=== PATIENT | male | born 1955 | race Caucasian/White ===

== ENCOUNTER 2017-07-25 06:18 | Inpatient (IN) ==
[2017-07-25] MEDS ORDERED: CeFAZolin Syr 3,000MG/30 ML 3,000 MG/30 ML SYRINGE IVPB ONE (06:37)
[2017-07-25] MEDS ORDERED: Albuterol 2.5 MG/3 ML NEBULIZER IH ONE (06:37)
[2017-07-25] MEDS ORDERED: Famotidine 20 MG/2 ML VIAL IVP ONE (07:16)
[2017-07-25] MEDS ORDERED: Acetaminophen IV 1,000 MG/100 ML INFUS..BTL IVPB ONE (07:17)
[2017-07-25] MEDS ORDERED: Pregabalin 75 MG CAPSULE PO ONE (07:17)
[2017-07-25] MEDS ORDERED: *HR* Rocuronium Bromide 50 MG/5 ML VIAL ONE (07:35)
[2017-07-25] MEDS ORDERED: Ondansetron 4 MG/2 ML VIAL ONE (07:35)
[2017-07-25] MEDS ORDERED: Lidocaine -MPF 2% 2 ML VIAL ONE (07:35)
[2017-07-25] MEDS ORDERED: Dexamethasone 4 MG/ML VIAL ONE (07:35)
--- NOTE | 2017-07-25 07:35 | Anesthesia Evaluation PreOp ---
Date of Encounter: 07/25/17 Time of Encounter: 07:30 - Past History Planned Operation: Posterior Lumbar Interbody Fusion L5-S1 Cardiac History: HTN, Hyperlipidemia, Other (AAA Repair) Pulmonary History: Smoker, COPD BEHAVIORAL SCIENCES DEPARTMENT CHAIR History: Denies Any Significant HX Other Medical History: Other (Obesity) Anesthesia History: No Prior Anesthetic Complications Alcohol Use: none Drug use: none Medications and Allergies Etodolac [Etodolac] 400 mg PO BID 07/25/17 [History] Fenofibrate Nanocrystallized [Triglide] 160 mg PO DAILY 07/25/17 [History] Gabapentin [Neurontin] 400 mg PO TID 07/25/17 [History] Metoprolol [Lopressor] 25 mg PO BID 07/25/17 [History] cloNIDine HCl [CloNIDine HCl] 0.1 mg PO DAILY PRN 07/25/17 [History] 3 Allergy/AdvReac Type Severity Reaction Status Date / Time No Known Allergies Allergy Verified 07/25/17 07:30 - Meds/Allergy Pre-op Review Medications Reviewed: Yes Allergies Reviewed: Yes Beta Blockers on Current Med List: Yes (Took Today 444) Anesthesia Results - Labs Laboratory Tests 07/19/17 07/19/17 07/19/17 12:03 12:03 12:03 Hgb 15.3 Hct 47.4 Plt Count 166 PT 11.4 INR 1.1 APTT 28.6 Sodium 139 Potassium 4.0 BUN 16 Creatinine 0.88 - Imaging EKG: report reviewed (SR occ PVC) Anesthesia Exam O2 Sat Height 1.8 m Height 1.8 m Height 1.8 m Weight 124.284 kg Weight 124.284 kg Weight 124.284 kg O2 Sat by Pulse Oximetry 94 O2 Sat by Pulse Oximetry 94 Vital Signs Temp Pulse Resp BP Pulse Ox 98.2 F 61 18 125/87 94 07/25/17 06:42 07/25/17 06:42 07/25/17 06:42 07/25/17 06:42 07/25/17 06:42 Height: 5'11 Weight: 274 lbs NPO (# of Hours): MN Pain Scale: 0 - HEENT Pupil (Motor): Pupils equal, EOMI Mallampati: II Teeth: Normal Oral Opening: Greater than 3 - BEHAVIORAL SCIENCES DEPARTMENT CHAIR LOC: Oriented BEHAVIORAL SCIENCES DEPARTMENT CHAIR Motor: Normal RUE, Normal LUE, Normal RLE, Normal Face, Deficit LLE ( weakness) BEHAVIORAL SCIENCES DEPARTMENT CHAIR Sensory: Normal: RUE, LUE, RLE, Face, Deficit: LLE (paresthesia) - Cardiac Rhythm: Regular Murmur: None JVD: No Carotid Bruit: No - Pulmonary Breath Sounds: bilateral Clear Respiratory Effort: Symmetrical Anesthesia Assess/Plan ASA Score: 3 (HTN COPD Obese Tobacco) Modified [place] Scale for Level of Consciousness: Cooperative, oriented, and tranquil Anesthetic Plan: General Monitoring Plan: Standard Monitors Recovery Plan: PACU (Discussed GA, agrees to proceed)
[2017-07-25] MEDS ORDERED: *HR* Propofol 200 MG/20 ML VIAL IVP ONE (07:36)
[2017-07-25] MEDS ORDERED: *HR* FentaNYL (PF) 100 MCG/2 ML VIAL ONE (07:36)
[2017-07-25] MEDS ORDERED: *HR* Midazolam HCl 2 MG/2 ML VIAL ONE (07:36)
[2017-07-25] MEDS ORDERED: Lidocaine -MPF 1% 2 ML VIAL ONE (07:40)
[2017-07-25] MEDS: Ringers Solution, Lactated 1,000 ML IVC SCH ×3 (07:44→12:02)
--- NOTE | 2017-07-25 08:10 | History & Physical Report ---
Date of Encounter: 07/25/17 Time of Encounter: 08:10 24 Hour HP Update - Instructions Instructions: If the History and Physical is less than 30 days old and was completed prior to A.M. admission and or procedure and has NOT been updated on calendar day of procedure please complete this update prior to performing procedure. - Update Patient reports changes in Medical Condition: No Changes in examination, assessment, or condition: No Changes in Medication: No Preop tests/diagnostics Reviewed: Yes Pre-Op MRSA Screen: Negative Surgery Remains Indicated: Yes Consent for Planned Operative Procedure(s) Verified: Yes - Pre-Operative Checklist Preoperative Checklist Indicated: No Prophylactic Antibiotic Ordered: Yes Home Medications Include Beta Eliane: Yes Beta Eliane Taken Today (Day of Surgery): No Beta Eliane Taken Yesterday (Day Prior to Surgery): Yes Is VTE Prophylaxis Indicated?: Yes
[2017-07-25] MEDS ORDERED: Bacitracin 50,000 UNIT, Polymyxin B Sulfate 500,000 UNIT, Sodium Chloride IRRigation 1,... IR ONE (08:15)
[2017-07-25] MEDS ORDERED: EPHEDrine 50 MG/ML VIAL ONE (08:59)
[2017-07-25] MEDS ORDERED: *HR* PHENYLEPHRINE 1,000 MCG/10 ML SYRINGE IVP ONE (09:57)
[2017-07-25] MEDS ORDERED: *HR* Promethazine 25 MG/ML VIAL IVP PRN (10:00)
[2017-07-25] MEDS ORDERED: Albuterol 2.5 MG/3 ML NEBULIZER IH PRN (10:00)
[2017-07-25] MEDS ORDERED: *HR* Morphine 10 MG/ML VIAL ONE (10:03)
[2017-07-25] MEDS ORDERED: Neostigmine Methylsulfate 3 MG/3 ML SYRINGE ONE (10:56)
--- NOTE | 2017-07-25 11:18 | Orthopedic Operative Note ---
Date of procedure: 07/25/17 Pre-op diagnosis: Spondylolisthesis, lumbar stenosis, lumbar radiculopathy Post-op diagnosis: same Operation/Findings: Posterior lumbar interbody fusion L5-S1: The patient successfully underwent general endotracheal anesthesia. The patient was given antibiotics prior to the start of the procedure. Compression boots and stockings were used for deep vein thrombosis prophylaxis. A Castaneda catheter was placed. Leads for neuro monitoring were placed on the upper and lower extremities. This included the cranium. The neuro monitoring personnel confirmed there were satisfactory readings prior to the start of the procedure. The patient was turned prone on the Henrique table. The back was prepped and draped in the usual sterile fashion. An incision was was marked and centered over the involved L5-S1 levels in the mid line. The incision was deepened through the lumbar fascia. Bovie cautery and Bill elevators were used to reflect the paraspinal musculature at the lateral extent of the transverse processes of the involved L5 and S1 levels. Shea clamps were placed over the L5 spinous process. An intraoperative lateral fluororaph was obtained. A conversation was held between the surgeon and radiologist and both confirmed we had the correct operative levels. We then placed pedicle screws in standard fashion with the aid of fluoroscopy and anatomic landmarks. Briefly a starter awl was used. A gearshift was subsequently used to enter the army helicopter pilot hole via a transpedicular route into the vertebral body. The army helicopter pilot hole was tapped with an undersized instrument, and subsequentlyfour 6.5 x 45 mm pedicle screws were placed bilaterally at the indicated levels. The screws were tested with the aid of the neurologic monitoring staff via pedicle screw stimulation. All reading suggested there was no significant cortical wall breech. The screws were also evaluated fluoro- graphically and appeared to be in satisfactory position. We then turned our attention to the decompression portion of the procedure. We removed the supraspinous and interspinous ligaments and subsequently the insertion of the ligamentum flavum on the undersurface of the proximal L5 lamina was dislodged with a curette. We then removed the ligamentum flavum as well as undercut the L5-S1 facets at this level to decompress the lateral recesses. We also performed a L5 laminectomy. After the decompression, which was over and above that which was required to place the interbody graft, the foramen and traversing roots at this level were found to be free and patent. We also took part of the medial facet in order to aid in the decompression. We then protected the neural elements including the thecal sac and traversing nerve root on the right with a dural retractor. We made an annulotomy into the L5-S1 disc space and then removed entire disc material using Pituitary instruments. We trialed various size grafts after the endplates were prepared for graft insertion. A 10 x 26 enter body graft fit well within the L5-S1 disc space. We obtained some bone from the right posterior superior iliac spine through us a separate incision and combined with this with the bone which we had saved from the laminectomy portion of the procedure. This autograft bone was first placed in the anterior portion of the L5-S1 disc space and additional bone was placed within the interbody graft spacer. We then placed the interbody graft spacer obliquely across the disc space towards the midline while protecting the neural elements with a root retractor. When the graft was found to be in satisfactory position the geophysical computer was removed. We then copiously irrigated the wound. We then decorticated the L5 transverse processes and proximal portion of the sacrum as well as the L5-S1 facet joints of the involved levels to aid in the posterolateral fusion. We placed autograft bone in the lateral gutters over these regions. We then placed rods within the screw heads of the involved L5 and S1 levels and first locked the distal screws and then subsequently locked the proximal screws so as to improve and reduce the spondylolisthesis previously seen. We then closed the wound in layers with 1 Vicryl for the fascia, 2-0 Vicryl. Subcutaneous tissue, and Dermabond was used for skin closure. Sterile dressings were placed over the wound. The patient was turned supine on a hospital bed and extubated. All sponge instruments and needle counts were correct at the end of the procedure. The patient tolerated the procedure well without complications. Anesthesia: GETA Surgeon: Dick Blood Jr Was there an physician assistant primary care present: No Estimated blood loss (cc): 150 Specimen: None Condition: stable Disposition: PACU
[2017-07-25] MEDS: *HR* Morphine 2 MG/ML SYRINGE IVP PRN ×2 (12:00→12:21)
[2017-07-25] MEDS ORDERED: Ringers Solution, Lactated 1,000 ML IVC SCH (13:13)
[2017-07-25] MEDS ORDERED: Ondansetron 4 MG/2 ML VIAL IVP PRN (13:13)
[2017-07-25] MEDS ORDERED: cloNIDine HCl 0.1 MG TABLET PO PRN (13:13)
[2017-07-25] MEDS ORDERED: Naloxone 0.4 MG/ML INJ IVP PRN (13:13)
[2017-07-25] MEDS ORDERED: *HR* OxyCODONE Immed Rel 5 MG TABLET PO SCH (13:13)
[2017-07-25] MEDS ORDERED: Acetaminophen 325 MG TABLET PO PRN (13:13)
--- NOTE | 2017-07-25 13:31 | Anesthesia Evaluation Post Op ---
Date of Encounter: 07/25/17 Time of Encounter: 13:00 - Vital Signs Vital Signs: Vital Signs/O2 Sat/Glucose, Most Current Temp Pulse Resp BP Pulse Ox 07/25/17 12:52 98.6 F 102 18 126/83 94 07/25/17 12:35 98.9 F 102 22 118/85 92 07/25/17 12:25 98.7 F 100 20 117/87 92 07/25/17 12:15 107 18 133/88 93 07/25/17 12:05 98 20 139/92 95 07/25/17 11:55 97.4 F L 100 20 137/86 95 07/25/17 11:45 100 18 155/83 94 07/25/17 11:35 100 20 148/87 96 07/25/17 11:25 98.9 F 100 16 147/88 94 - Lungs Lungs: Clear Ascult./Percussion - Airway Airway: Non-obstructed - Cardiovascular Regular Rate - Mental Status Mental Status: Alert & Oriented, Answers Appropriately - Pain Pain Scale: 1 - Nausea Vomiting Nausea Vomiting: Not Present - Hydration Hydration: Ice chips - Discharge PostOp Status: Transfer Patient to floor
[2017-07-25] MEDS: CeFAZolin Premix DUPLEX 2,000 MG/50 ML BAG IVPB SCH ×2 (15:51→23:21)
[2017-07-25] MEDS: *HR* OxyCODONE Immed Rel 5 MG TABLET PO PRN ×2 (19:15→23:21)
[2017-07-26] MEDS: *HR* OxyCODONE Immed Rel 5 MG TABLET PO PRN ×3 (04:50→16:59)
[2017-07-26 05:36] LABS: Basophils % 0.1 %; Eosinophils % 0.1 %; Hematocrit 40.2 % (37.5-50.1); Immature Granulocytes % 0.3 % (0-4); Lymphocytes # 1.7 K/mcL (0.6-4.6); Lymphocytes % 12.5 %; Mean Corpuscular HGB Conc 33.1 g/dL (31.6-35.5); Mean Corpuscular Hemoglobin 28.8 pg (28.0-33.3); Mean Platelet Volume 10.2 fL (9.4-12.4); Monocytes # 1.4 K/mcL (0.0-1.3); Monocytes % 10.4 %; Neutrophils # 10.5 K/mcL (1.6-8.9); Platelet Count 197 K/mcL (140-400); Red Blood Count 4.62 M/mcL (4.19-5.50); Red Cell Distribution Width 15.1 % (11.5-14.5); Segmented Neutrophils % 76.6 %
[2017-07-26 05:40] LABS: Hemoglobin 13.3 g/dL (12.9-16.9)
[2017-07-26 06:02] LABS: BUN/Creatinine Ratio 18 (6-26); Blood Urea Nitrogen 12 mg/dL (8-23); Calcium 9.1 mg/dL (8.6-10.3); Carbon Dioxide 25 mEq/L (23-29); Chloride 106 mEq/L (98-107); Glucose 125 mg/dL (70-105); Osmolality,Calculated 283 (280-300); Potassium 3.9 mEq/L (3.5-5.1); Sodium 136 mEq/L (136-145); eGFR For African Americans > 60 (> 60); eGFR For Non-African Americans > 60 (> 60)
[2017-07-26] MEDS: Fenofibrate 54 MG TABLET PO SCH (09:35)
[2017-07-26] MEDS: Albuterol 2.5 MG/3 ML NEBULIZER IH SCH ×4 (11:12→20:05)
--- NOTE | 2017-07-26 12:28 | Spine Progress Note ---
Date of Encounter: 07/26/17 Time of Encounter: 12:26 Subjective Principal diagnosis: Spondylolisthesis, lumbar stenosis Interval history: The patient is without complaints. Afebrile vital signs are stable. Incision is clean dry and intact. Neurovascularly intact with regard to bilateral lower extremities. Fires all upper and lower extremity motor groups. Assessment : stable. Plan mobilize ,continue analgesics, discharge planning. Objective Vital signs: Vital Signs Temp Pulse Resp BP Pulse Ox 07/26/17 11:38 97.8 F 99 20 145/95 91 07/26/17 07:51 98.2 F 82 16 151/84 90 07/26/17 04:23 98.0 F 83 16 127/82 91 07/25/17 23:32 98.0 F 89 18 135/86 91 07/25/17 20:39 98.0 F 77 18 112/72 92 07/25/17 15:57 98 F 105 16 133/68 91 07/25/17 14:45 98.1 F 101 16 118/76 92 07/25/17 14:19 98 F 104 16 120/79 92 07/25/17 13:20 98.4 F 103 16 128/88 91 07/25/17 12:52 98.6 F 102 18 126/83 94 07/25/17 12:35 98.9 F 102 22 118/85 92 Intake and Output 07/25/17 07/26/17 07/26/17 23:59 07:59 15:59 Intake Total 350 / 350 300 / 300 Output Total 2490 / 2490 1050 / 1050 Balance -2140 / -2140 -750 / -750 Intake: IV Fluids 50 / 50 Ancef Premix DUPLEX 2,000 mg In 50 / 50 50 ml @ 100 mls/hr IVPB Q8HR [facility] Rx#:[id number] Oral 300 / 300 300 / 300 Output: Catheter 2490 / 2490 1050 / 1050 Urethral (Castaneda) 1840 / 1840 - Labs CBC & BMP: 07/26/17 05:28 07/26/17 05:28 Labs: Abnormal lab results WBC 13.7 K/mcL (4.3-11.1) H D 07/26/17 05:28 RDW 15.1 % (11.5-14.5) H 07/26/17 05:28 Neutrophils # 10.5 K/mcL (1.6-8.9) H 07/26/17 05:28 Monocytes # 1.4 K/mcL (0.0-1.3) H 07/26/17 05:28 Creatinine 0.66 mg/dL (0.70-1.30) L 07/26/17 05:28 Glucose 125 mg/dL (70-105) H 07/26/17 05:28 Consult Discharge Plan - Plan Referrals: Krista Marsh, MICROELECTRONICS ENGINEER [Primary Care Provider] -
[2017-07-26] MEDS: *HR* HYDROcodone/Acet 5/325 mg TABLET PO PRN (13:23)
[2017-07-27] MEDS: Albuterol 2.5 MG/3 ML NEBULIZER IH SCH ×7 (00:07→23:16)
[2017-07-27] MEDS: *HR* OxyCODONE Immed Rel 5 MG TABLET PO PRN ×3 (03:11→14:10)
[2017-07-27] MEDS: Fenofibrate 54 MG TABLET PO SCH (09:29)
[2017-07-27] MEDS ORDERED: Ipratropium/Albuterol Neb 3 ML IH ONE (10:39)
--- NOTE | 2017-07-27 13:32 | Spine Progress Note ---
Date of Encounter: 07/27/17 Time of Encounter: 13:31 Subjective Principal diagnosis: Spondylolisthesis, lumbar stenosis Interval history: The patient is without complaints. Afebrile vital signs are stable. Incision is clean dry and intact. Neurovascularly intact with regard to bilateral lower extremities. Fires all upper and lower extremity motor groups. Assessment : stable. Plan mobilize ,continue analgesics, discharge planning. Objective Vital signs: Vital Signs Temp Pulse Resp BP Pulse Ox 07/27/17 11:27 20 88 07/27/17 11:02 98.5 F 91 16 137/72 93 07/27/17 08:03 18 86 07/27/17 07:58 98.4 F 87 16 150/96 93 07/27/17 00:16 97.7 F 80 17 127/80 99 07/27/17 00:09 18 90 07/26/17 20:06 18 92 07/26/17 20:00 97.9 F 87 17 132/81 99 07/26/17 16:53 18 90 07/26/17 16:25 99.1 F 96 18 137/76 85 Intake and Output 07/26/17 07/27/17 07/27/17 23:59 07:59 15:59 Intake Total 150 / 150 Output Total 850 / 850 700 / 700 500 / 500 Balance -700 / -700 -700 / -700 -500 / -500 Intake: Oral 150 / 150 Output: Urine 850 / 850 700 / 700 500 / 500 - Labs CBC & BMP: 07/26/17 05:28 07/26/17 05:28 Labs: Abnormal lab results WBC 13.7 K/mcL (4.3-11.1) H D 07/26/17 05:28 RDW 15.1 % (11.5-14.5) H 07/26/17 05:28 Neutrophils # 10.5 K/mcL (1.6-8.9) H 07/26/17 05:28 Monocytes # 1.4 K/mcL (0.0-1.3) H 07/26/17 05:28 Creatinine 0.66 mg/dL (0.70-1.30) L 07/26/17 05:28 Glucose 125 mg/dL (70-105) H 07/26/17 05:28 Consult Discharge Plan - Plan Referrals: Jimena Coyle, PAC [Physician Retail Asset Protection Specialist] - 08/08/17 2:00 pm Dick Blood Jr, MD [Partnered Physician] - 10/26/17 11:30 am Krista Marsh CNP [Primary Care Provider] -
[2017-07-27 18:26] LABS: ABG Base Excess 1 mEq/L (-2 to 3); ABG HCO3 24 mEq/L (21-27); ABG Oxygen Saturation 88 % (95-98); ABG PCO2 35 mmHg (35-45); ABG PH 7.44 pH Units (7.32-7.45); ABG PO2 53 mmHg (85-104); ABG TCO2 25 mEq/L (20-26)
[2017-07-28] MEDS: *HR* OxyCODONE Immed Rel 5 MG TABLET PO PRN ×3 (00:06→18:33)
[2017-07-28] MEDS: Albuterol 2.5 MG/3 ML NEBULIZER IH SCH ×6 (03:33→23:40)
[2017-07-28] MEDS: Fenofibrate 54 MG TABLET PO SCH (07:52)
[2017-07-28] MEDS: *HR* HYDROcodone/Acet 5/325 mg TABLET PO PRN (10:23)
--- NOTE | 2017-07-28 16:02 | Spine Progress Note ---
Date of Encounter: 07/28/17 Time of Encounter: 16:01 Subjective Principal diagnosis: Spondylolisthesis, lumbar stenosis Interval history: The patient is without complaints. Afebrile vital signs are stable. Incision is clean dry and intact. Has some ecchymosis in the right flank. Neurovascularly intact with regard to bilateral lower extremities. Fires all upper and lower extremity motor groups. Assessment :stable. Plan mobilize , continue analgesics, discharge planning. Have asked the patient to be compliant with incentive spirometry. Has known COPD. Objective Vital signs: Vital Signs Temp Pulse Resp BP Pulse Ox 07/28/17 12:23 98.8 F 79 16 110/72 90 07/28/17 11:53 16 90 07/28/17 09:14 90 07/28/17 08:13 17 92 07/28/17 07:32 98.5 F 85 17 121/77 92 07/28/17 03:45 98.1 F 88 16 146/79 90 07/28/17 03:33 22 93 07/27/17 23:40 98.2 F 94 18 176/85 90 07/27/17 23:16 22 92 07/27/17 19:43 24 92 07/27/17 19:07 99.2 F 98 18 154/98 92 07/27/17 16:42 98.4 F 79 18 144/79 93 07/27/17 16:10 18 137/72 88 - Labs CBC & BMP: 07/26/17 05:28 07/26/17 05:28 Labs: Abnormal lab results WBC 13.7 K/mcL (4.3-11.1) H D 07/26/17 05:28 RDW 15.1 % (11.5-14.5) H 07/26/17 05:28 Neutrophils # 10.5 K/mcL (1.6-8.9) H 07/26/17 05:28 Monocytes # 1.4 K/mcL (0.0-1.3) H 07/26/17 05:28 ABG pO2 53 mmHg (85-104) L 07/27/17 18:17 ABG O2 Saturation 88 % (95-98) L 07/27/17 18:17 Creatinine 0.66 mg/dL (0.70-1.30) L 07/26/17 05:28 Glucose 125 mg/dL (70-105) H 07/26/17 05:28 Consult Discharge Plan - Plan Referrals: Jimena Coyle, TRAVIS [Physician Coupling Machine Operator] - 08/08/17 2:00 pm Dick Blood Jr, MD [Partnered Physician] - 10/26/17 11:30 am Krista Marsh CNP [Primary Care Provider] -
--- NOTE | 2017-07-28 16:04 | Discharge Summary ---
Date of Encounter: 07/28/17 Time of Encounter: 16:02 - Discharge Diagnosis (1) Spondylolisthesis Priority: Primary Status: Chronic Qualifiers: Spinal region: lumbar Qualified Code(s): M43.16 - Spondylolisthesis, lumbar region (2) Lumbar stenosis without neurogenic claudication Priority: Secondary Status: Chronic - Discharge Medications Prescriptions: OxyCODONE Immed Rel [Roxicodone 5 MG] 5 mg PO Q4HR PRN 5 Days #30 tablet PRN Reason: Breakthrough Pain Home Medications: Etodolac 400 mg PO BID 07/25/17 [History] Fenofibrate Nanocrystallized [Triglide] 160 mg PO DAILY 07/25/17 [History] Gabapentin [Neurontin] 400 mg PO TID 07/25/17 [History] Metoprolol [Lopressor] 25 mg PO BID 07/25/17 [History] cloNIDine HCl [CloNIDine HCl] 0.1 mg PO DAILY PRN 07/25/17 [History] OxyCODONE Immed Rel [Roxicodone 5 MG] 5 mg PO Q4HR PRN 5 Days #30 tablet [Rx] Allergies/Adverse Reactions: 3 Allergy/AdvReac Type Severity Reaction Status Date / Time No Known Allergies Allergy Verified 07/25/17 07:30 Labs on day of discharge: Labs from last 24 hours 07/27/17 18:17 Sample Site R Radial ABG pH 7.44 ABG pCO2 35 ABG pO2 53 L ABG HCO3 24 ABG Total CO2 25 ABG O2 Saturation 88 L ABG Base Excess 1 Ernie Test Positive O2 Delivery Device Cannula Inspired O2 28.0 - Impressions ITS Impressions Lumbar Spine X-Ray 07/25/17 00:00 IMPRESSION: Status post fusion at L5-S1 for spondylolisthesis which appears to be for the most part reduced. No obvious new or unexpected finding. D/ / 07/25/2017 11:42:20 Rachelle Mai MD / Mariely Harvey Interpreting Provider: Rachelle Mai MD Chest X-Ray 07/27/17 10:13 IMPRESSION: Mild patchy left lung base opacities which may represent atelectasis versus possible pneumonia. D/ 07/27/2017 16:29:09 Odilon Black MD / aleida Interpreting Provider: Odilon Black MD Date of admission: 07/25/17 12:43 Primary care physician: Krista Marsh, Consults: 07/25/17 13:13 Consult to Occupational Therapy [CONS] Routine Comment: Evaluate, develop and implement POC Reason for Consult: Postoperative rehabilitation Consult to Physical Therapy [CONS] Routine Comment: Evaluate, develop and implement POC Reason for Consult: Postoperative rehabilitation Consult to Rewriter [CONS] Routine Reason for SW Consult: Postoperative rehabilitation Consult to Spine Navigator [CONS] [CONS] Routine - Patient Status Disposition: Home Health Service Condition: Good Functional capacity at discharge: independent ambulation Overall status at discharge: patient is progressing back to baseline - Discharge Instructions Follow Up With: Jimena Coyle PAC [Physician Embedded Engineer] - 08/08/17 2:00 pm Dick Blood Jr, MD [Partnered Physician] - 10/26/17 11:30 am Krista Marsh CNP [Primary Care Provider] - - Diet and Activity Activity: as per physical therapy Diet: advance to your usual diet - Hospital Course Hospital course: Mr. Basurto is a 62 year old male The patient had an uneventful postoperative course. Progressed from intravenous analgesic needs to oral analgesic needs only. Remained neurovascularly intact and mobilized satisfactorily. All intraoperative and/or postoperative radiographic studies were satisfactory. Patient is discharged with plan for rehabilitation and follow-up in 2 weeks post discharge on analgesic medication and patient's home medications. - Time Spent with Patient Total time spent providing and/or coordinating discharge services: - VTE Documentation of Mechanical Device: Intermittent pneumatic compression device
[2017-07-29] MEDS: Albuterol 2.5 MG/3 ML NEBULIZER IH SCH ×2 (03:17→08:07)
[2017-07-29] MEDS: *HR* OxyCODONE Immed Rel 5 MG TABLET PO PRN (05:09)
--- NOTE | 2017-07-29 06:47 | Orthopedics Progress Note ---
Date of Encounter: 07/29/17 Time of Encounter: 06:47 Subjective Principal diagnosis: Spondylolisthesis, lumbar stenosis Interval history: Patient was seen this morning doing well without complaints. Afebrile vital signs stable. Bilateral lower extremity extremity: Neurovascularly intact Dressing clean dry and intact Calves nontender Assessment and plan: Continue with postoperative care Discharge today Objective Vital signs: Vital Signs Temp Pulse Resp BP Pulse Ox 07/28/17 23:40 18 90 07/28/17 21:16 99.1 F 88 17 128/89 93 07/28/17 20:35 20 93 07/28/17 16:23 98.6 F 94 18 104/65 91 07/28/17 16:04 16 93 07/28/17 12:23 98.8 F 79 16 110/72 90 07/28/17 11:53 16 90 07/28/17 09:14 90 07/28/17 08:13 17 92 07/28/17 07:32 98.5 F 85 17 121/77 92 Intake and Output 07/28/17 07/28/17 07/29/17 15:59 23:59 07:59 Output Total 275 / 275 Balance -275 / -275 Output: Urine 275 / 275 - Labs CBC & BMP: 07/26/17 05:28 07/26/17 05:28 Labs: Abnormal lab results WBC 13.7 K/mcL (4.3-11.1) H D 07/26/17 05:28 RDW 15.1 % (11.5-14.5) H 07/26/17 05:28 Neutrophils # 10.5 K/mcL (1.6-8.9) H 07/26/17 05:28 Monocytes # 1.4 K/mcL (0.0-1.3) H 07/26/17 05:28 ABG pO2 53 mmHg (85-104) L 07/27/17 18:17 ABG O2 Saturation 88 % (95-98) L 07/27/17 18:17 Creatinine 0.66 mg/dL (0.70-1.30) L 07/26/17 05:28 Glucose 125 mg/dL (70-105) H 07/26/17 05:28 - VTE Documentation of Mechanical Device: Graduated compression elastic hosiery Consult Discharge Plan - Plan Additional Instructions: Per Dr. Blood 07/28/17: Daily dressing change until drainage stops: betadine swab to incision, AMD and medipore. Referrals: Jimena Coyle PAC [Physician Lpc] - 08/08/17 2:00 pm Dick Blood Jr, MD [Partnered Physician] - 10/26/17 11:30 am Krista Marsh CNP [Primary Care Provider] - Prescriptions: OxyCODONE Immed Rel [Roxicodone 5 MG] 5 mg PO Q4HR PRN 5 Days #30 tablet PRN Reason: Breakthrough Pain OxyCODONE Immed Rel [Roxicodone 5 MG] 5 mg PO Q4HR PRN 5 Days #24 tablet PRN Reason: Pain
[2017-07-29 07:41] VITALS: BP 121/68
[2017-07-29] MEDS: Fenofibrate 54 MG TABLET PO SCH (10:01)
--- NOTE | 2017-07-30 17:21 | Electrocardiograph Report ---
[address] [address] Test Date: 2017-07-27 Pat Name: Dick Basurto Department: 114 Room: [facility] Gender: M Tube Bender: : 1955 Requested By: Dick Blood Order Number: [id number] Reading MD: Марина Gomez Measurements Intervals [place] Rate: 110 P: 52 SD: 197 QRS: 41 QRSD: 114 T: 47 QT: 337 QTc: 402 Interpretive Statements SINUS TACHYCARDIA WITH OCCASIONAL VENTRICULAR PREMATURE COMPLEXES WITH FREQUENT SUPRAVENTRICULAR PREMATURE COMPLEXES POSSIBLE LEFT ATRIAL ENLARGEMENT INTRAVENTRICULAR CONDUCTION DELAY ABNORMAL RHYTHM ECG Electronically Signed On 07-30-2017 17:19:55 EST by Марина Gomez
== END 2017-07-29 11:00 | DRG 460 ==
LOC: SAMDAY 06:18 → 3NENU 12:43
PROVIDERS: ADMIT Orthopaedic Surgery Orthopaedic Surgery of the Spine; ATTEND Orthopaedic Surgery Orthopaedic Surgery of the Spine